=== PATIENT | female | born 1945 | race Caucasian/White ===

== ENCOUNTER 2020-07-01 13:06 | Outpatient (REF) | payer MEDICARE, SELFPAY ==
[2020-07-01 14:30] LABS: MANUAL DIFF FLAG NO
[2020-07-01 14:39] LABS: Basophils Absolute Auto 0.1 X10*3/uL (0.0-0.2); Basophils Percent Auto 0.9 % (0-2); Eosinophils Absolute Auto 0.2 X10*3/uL (0.0-0.4); Eosinophils Percent Auto 2.8 % (0-4); Hematocrit 43.5 % (37-47); Imm Gran Abs Auto 0.01 X10*3/uL (0.00-0.03); Imm Gran Pct Auto 0.2 % (0.0-0.4); Lymphocytes Absolute Auto 1.6 X10*3/uL (1.2-4.9); Lymphocytes Percent Auto 24.9 % (20-40); Mean Corpuscular HGB Conc 32.2 g/dl (31.0-35.0); Mean Corpuscular Hemoglobin 30.6 pg (27.0-33.0); Mean Platelet Volume 9.4 fL (9.4-12.3); Monocytes Absolute Auto 0.5 X10*3/uL (0.1-1.2); Monocytes Percent Auto 7.7 % (2-11); Neutrophils Absolute Auto 4.1 X10*3/uL (2.0-8.3); Neutrophils Percent Auto 63.5 % (45-73); Platelet Count 349 X10*3/uL (160-400); Red Blood Count 4.58 X10*6/uL (4.20-5.50); Red Cell Distribution Width 12.8 % (11.0-16.0); White Blood Count 6.5 X10*3/uL (4.8-10.8)
[2020-07-01 15:20] LABS: Alanine Aminotransferase 24 U/L (0-31); Albumin Level 4.3 g/dL (3.5-5.0); Alkaline Phosphatase 128 U/L (39-117); Anion Gap 16 (12-20); Aspartate Amino Transferase 21 U/L (5-31); Bilirubin Direct 0.2 mg/dL (0.0-0.5); Bilirubin Total 0.4 mg/dL (0.0-1.0); Blood Urea Nitrogen 10 mg/dL (9-16); C Reactive Protein 0.62 mg/dL (< or = 0.50); Calcium 10.3 mg/dL (8.4-10.2); Carbon Dioxide 26 mmol/L (22-29); Chloride 103 mmol/L (96-108); Estimated Glomerular Filt Rate > 60; Glucose Random 93 mg/dL (60-115); Potassium 4.2 mmol/L (3.3-5.1); Sodium 141 mmol/L (135-145); Total Protein 7.3 g/dL (6.5-8.0)
[2020-07-01 15:41] LABS: T4 Thyroxine 7.9 ug/dL (4.5-12.0); Thyroid Stimulating Hormone 1.94 uIU/mL (0.32-4.0)
[2020-07-01 16:22] LABS: Erythrocyte Sedimentation Rate 29 MM/HR (0-20)
[2020-07-02 13:57] LABS: Immunoglobulin A 139 mg/dL (70-320)
[2020-07-06 14:51] LABS: Gliadin Deamidated IgA Ab 20 Units; Gliadin Deamidated IgG Ab 2 Units
[2020-07-07 19:31] LABS: Transglutaminase Ab IgG 1 U/mL; Transglutaminase IgA 1 U/mL
[2020-07-08 15:41] LABS: Endomysial IgA Antibody Negative (Negative)
== END 2020-07-01 13:07 | disposition home or self-care (01) ==
LOC: HO.LAB 13:06
PROVIDERS: PCP Family Medicine; Visit Provider Internal Medicine
DX: R10.9 Unspecified abdominal pain (principal); R19.4 Change in bowel habit; R14.0 Abdominal distension (gaseous)
CPT/HCPCS: 36415; 80048; 80076; 82784; 83516; 84436; 84443; 85025; 85652; 86140; 86255; 86256

== ENCOUNTER 2020-07-19 10:37 | Day surgery (SDC) | payer MEDICARE, SELFPAY ==
--- NOTE | 2020-07-14 10:21 | P.CONAN_ITS ---
Documented by User: Shayla Robins 07/14/20 10:21 HPI - Anesthesia Eval Consult details Narrative: 74yo F for Colonoscopy [facility] Past Medical History Medical History Alopecia areata Breast cancer, right breast Depression GERD (gastroesophageal reflux disease) Hx of radiation therapy Osteopenia Surgical History Surgical History History of foot surgery History of lumpectomy of right breast Hx of colonoscopy Hx of dilation and curettage Hx of esophagogastroduodenoscopy Social History Social History Smoking Status: Former smoker Use of substances other than those prescribed or required for medical reasons: No Are you DNR?: No Advance Directives: No Advance Directives Information Provided: Yes Meds Allergies Allergy/AdvReac Type Severity Reaction Status Date / Time No Known Allergies Allergy Verified 07/19/20 11:30 [No Known Allergies*] Home Medications Medication Instructions Recorded Confirmed Last Taken Type nortriptyline 1 cap PO BEDTIME 07/13/20 07/13/20 Unknown History omeprazole 1 cap PO DAILY 07/13/20 07/13/20 Unknown History simvastatin 1 tab PO BEDTIME 07/13/20 07/13/20 Unknown History trospium 1 cap PO DAILY 07/13/20 07/13/20 Unknown History Exam Exam Date and Time: July 14, 2020 1021 Assessment and Plan Assessment Anesthesia Assessment: Chart Reviewed Documented by User: Lorna Saab 07/19/20 12:18 [facility] Past Medical History Medical History Alopecia areata Breast cancer, right breast Depression GERD (gastroesophageal reflux disease) Hx of radiation therapy Osteopenia Family History Family history of problems with anesthesia: No Surgical History Surgical History History of foot surgery History of lumpectomy of right breast Hx of colonoscopy Hx of dilation and curettage Hx of esophagogastroduodenoscopy History of Problems with Anesthesia: No Social History Social History Smoking Status: Former smoker Use of substances other than those prescribed or required for medical reasons: No Are you DNR?: No Advance Directives: No Advance Directives Information Provided: Yes Meds Allergies Allergy/AdvReac Type Severity Reaction Status Date / Time No Known Allergies Allergy Verified 07/19/20 11:30 [No Known Allergies*] Home Medications Medication Instructions Recorded Confirmed Last Taken Type nortriptyline 1 cap PO BEDTIME 07/13/20 07/13/20 Unknown History omeprazole 1 cap PO DAILY 07/13/20 07/13/20 Unknown History simvastatin 1 tab PO BEDTIME 07/13/20 07/13/20 Unknown History trospium 1 cap PO DAILY 07/13/20 07/13/20 Unknown History Exam Height,Weight and Vital Signs: Vital Signs Temp Pulse Resp BP Pulse Ox 07/19/20 11:30 97.6 F 90 18 151/82 H 97 Airway Mallampati Class: II TM Dist: >3cm Neck ROM: Full Partial: Upper and Lower Heart: RRR Lungs: CTAB Assessment and Plan Assessment Anesthesia Assessment: Anesthesia Plan Discussed and Chart Reviewed Final Anesthetic Review NPO: Yes ASA Class: II Final Preanesthetic Review: No Changes in Pt Med Stat, Meds/Allgs Chart Reviewed, Consent Obtained/Reviewed and Anes Risks/Benef Reviewed Patient Risk: Low Procedure Risk: Low Assessment/Block/Sedation in SS: Assess/Block/Sedation- Anesthetic Plan Anesthetic Plan: MAC: Disposition: Standard PACU
[2020-07-19 11:30] VITALS: BP 151/82; PULSE 90; RESP 18; TEMP 36.4; O2SAT 97; BMI 29.1
[2020-07-19] MEDS: Lactated Ringers 1,000 ML 100 ML IVCONT (12:46)
[2020-07-19 13:58] VITALS: BP 139/88; PULSE 94; RESP 16; TEMP 36.3; O2SAT 96
[2020-07-19 14:04] VITALS: PULSE 93; RESP 18; O2SAT 96
--- NOTE | 2020-07-19 14:04 | P.BOP_ITS ---
Brief Operative Note Date of Service: 07/19/20 Pre-op diagnosis: Change in bowels, diarrhea Post-op diagnosis: other (Diverticulosis, R/O microscopic colitis) Procedure: Colonoscopy to the cecum and TI with biopsies Surgeon: Jaspreet Garrido Anesthesia: MAC Was an Director Patient Financial Services used for this Procedure?: No Estimated blood loss (mL): 4.0 Pathology: other (A. Ascending colon B. Descending colon) Condition: stable Disposition: PACU
[2020-07-19 14:13] VITALS: BP 153/87; PULSE 89; RESP 18; O2SAT 97
[2020-07-19 14:20] VITALS: PULSE 86; RESP 18; O2SAT 97
--- NOTE | 2020-07-19 15:33 | OP_ITS ---
SURGEON: Jaspreet Garrido MD INDICATIONS: The patient presents for evaluation of change in bowel habits and diarrhea. Full consent has been obtained from her for this, including risks of bleeding and perforation. PREOPERATIVE DIAGNOSIS: POSTOPERATIVE DIAGNOSIS: PROCEDURE PERFORMED: Colonoscopy to cecum and terminal ileum with biopsies. ESTIMATED BLOOD LOSS: COMPLICATIONS: ANESTHESIA: Monitored anesthesia care. ASSISTANTS: SPECIMENS: PREOPERATIVE DIAGNOSES: Change in bowel habits and diarrhea. POSTOPERATIVE DIAGNOSES: Change in bowel habits and diarrhea, rule out microscopic colitis, diverticulosis, and internal hemorrhoids. DESCRIPTION OF PROCEDURE: The patient was placed in the left lateral decubitus position. The digital rectal exam revealed no abnormalities. The Olympus video pediatric colonoscope was entered into the rectum and advanced easily to the cecum. Once in the cecum, I did identify normal-appearing cecal pouch with appendiceal orifice and a normal-appearing ileocecal valve. The terminal ileum was cannulated for at least 10 cm and appeared normal as well. Biopsies were obtained. The scope was withdrawn back in the colon. The entire cecum and ileocecal valve appeared normal. The scope was slowly withdrawn assessing all mucosal surfaces carefully. Preparation was excellent. I did not visualize any sign of definitive colitis, polyps, nor angiodysplasia. There was some slight erythema in the sigmoid colon, but without bharti colitis. Biopsies were obtained in the ascending colon and descending colon. There were no polyps nor angiodysplasia. There was a moderate amount of sigmoid diverticulosis. In the rectum, scope was retroflexed visualizing internal hemorrhoids, but no other pathology. The rectal mucosa appeared normal. The scope was straightened out and withdrawn from the patient. She tolerated the procedure well and was returned to the recovery area in stable condition. IMPRESSION: 1. Rule out microscopic colitis. 2. Diverticulosis. 3. Internal hemorrhoids. PLAN: The results of the biopsies will be checked. She does advise me that she was recently treated for diverticulitis with outpatient oral antibiotics and this actually did help some of her symptoms improved. I will advise her to continue a careful diet and use Imodium as needed. Recent laboratories including CBC, thyroid studies, and celiac disease laboratories were nonrevealing. She also turned in reported negative stool specimens. I did advise her to see me in several months for a followup visit, but to call sooner as needed. Given her age and the otherwise negative exam, I do not think she will need any further screening colonoscopies. MD LISA Abreu/GREGORIO / [id number]
== END 2020-07-19 14:45 | disposition home or self-care (01) ==
PROVIDERS: PCP Family Medicine; Visit Provider Internal Medicine
PROC: 0DJD8ZZ Inspection of Lower Intestinal Tract, Via Natural or Artificial Opening Endoscopic (ICD-10-PCS; CPT 45378; principal; 2020-07-19 11:50)
DX: R19.4 Change in bowel habit (principal); R19.5 Other fecal abnormalities; R19.7 Diarrhea, unspecified; Z86.010 Personal history of colon polyps; K57.30 Diverticulosis of large intestine without perforation or abscess without bleeding; K64.8 Other hemorrhoids; K21.9 Gastro-esophageal reflux disease without esophagitis; M85.80 Other specified disorders of bone density and structure, unspecified site; Z79.899 Other long term (current) drug therapy; Z85.3 Personal history of malignant neoplasm of breast; Z92.3 Personal history of irradiation; Z87.891 Personal history of nicotine dependence
CPT/HCPCS: 45380; 88305

== ENCOUNTER 2022-07-26 11:50 | Outpatient (REF) | payer MEDICARE, SELFPAY ==
[2022-07-26 12:07] LABS: MANUAL DIFF FLAG NO
[2022-07-26 12:49] LABS: Basophils Percent Auto 0.8 % (0-2); Eosinophils Absolute Auto 0.2 X10*3/uL (0.0-0.4); Eosinophils Percent Auto 2.9 % (0-4); Hematocrit 44.2 % (37.0-47.0); Hemoglobin 14.3 g/dl (12.0-16.0); Imm Gran Abs Auto 0.01 X10*3/uL (0.00-0.03); Imm Gran Pct Auto 0.2 % (0.0-0.4); Mean Corpuscular HGB Conc 32.4 g/dl (31.0-35.0); Mean Corpuscular Volume 95.9 fL (80.0-98.0); Mean Platelet Volume 9.4 fL (9.4-12.3); Monocytes Absolute Auto 0.6 X10*3/uL (0.1-1.2); Monocytes Percent Auto 11.4 % (2-11); Neutrophils Absolute Auto 3.3 x10*3/uL (2.0-8.3); Neutrophils Percent Auto 64.7 % (45-73); Platelet Count 267 X10*3/uL (160-400); Red Blood Count 4.61 X10*6/uL (4.20-5.50); Red Cell Distribution Width 13.1 % (11.0-16.0); White Blood Count 5.1 X10*3/uL (4.8-10.8)
[2022-07-26 13:42] LABS: Alanine Aminotransferase 22 U/L (0-31); Albumin Level 4.2 g/dL (3.5-5.0); Alkaline Phosphatase 107 U/L (39-117); Amylase 49 U/L (28-100); Anion Gap 13 (12-20); Aspartate Amino Transferase 23 U/L (5-31); Bilirubin Direct 0.2 mg/dL (0.0-0.5); Bilirubin Total 0.7 mg/dL (0.0-1.0); Blood Urea Nitrogen 10 mg/dL (9-16); C Reactive Protein 0.28 mg/dL (< or = 0.50); Calcium 9.6 mg/dL (8.4-10.2); Carbon Dioxide 25 mmol/L (22-29); Chloride 103 mmol/L (96-108); Erythrocyte Sedimentation Rate 10 MM/HR (0-20); Estimated Glomerular Filt Rate > 60; Glucose Random 85 mg/dL (60-115); Lipase 35 U/L (8-78); Sodium 137 mmol/L (135-145)
[2022-07-26 14:05] LABS: Appearance Urine Clear; Color Urine Yellow; Glucose Urine UA Negative (Negative); Leukocyte Esterase Urine Moderate (2+) (Negative); Nitrite Urine Negative (Negative); PH 5.5 (5.0-9.0); Specific Gravity - Urine <= 1.005 (1.005-1.025); UMIC TRIGGER UACC YES; Urine Blood Negative (Negative); Urine Ketones Negative (Negative); Urine Protein Negative (Neg-Trace)
[2022-07-26 14:08] LABS: Bacteria Urine None Seen (None Seen); Hyaline Casts Urine 0-2 /LPF (0-2); RBC Urine 0-2 /HPF (0-2); Squamous Epithelial Cell Urine 0-2 /HPF (0-2); UACC Culture Trigger YES
== END 2022-07-26 11:51 | disposition home or self-care (01) ==
LOC: HO.LAB 11:50
PROVIDERS: Visit Provider Internal Medicine
DX: R10.84 Generalized abdominal pain (principal); R19.7 Diarrhea, unspecified
CPT/HCPCS: 36415; 80048; 80076; 81001; 82150; 83690; 85025; 85652; 86140; 87086; 87088; 87186

== ENCOUNTER 2022-07-27 12:28 | Outpatient (REF) | payer MEDICARE, SELFPAY ==
[2022-07-27 13:22] LABS: Leukocytes Stool Qualitative NEGATIVE (NEGATIVE)
[2022-07-27 14:19] LABS: CDiff Gene PCR POSITIVE (Negative)
[2022-07-27 14:51] LABS: CDIFF Internal ctrl Dots and bkg OK (V); CDiff Toxin Negative (Negative)
[2022-07-27 15:20] LABS: Adenovirus F 40/41 Not Detected (Not Detect.); Astrovirus Not Detected (Not Detect.); Campylobacter Not Detected (Not Detect.); Cryptosporidium Not Detected (Not Detect.); Cyclospora cayetanensis Not Detected (Not Detect.); E. coli EAEC Not Detected (Not Detect.); E. coli EPEC Not Detected (Not Detect.); E. coli ETEC Not Detected (Not Detect.); E. coli STEC Not Detected (Not Detect.); Entamoeba histolytica Not Detected (Not Detect.); Giardia lamblia Not Detected (Not Detect.); Norovirus GI/GII Not Detected (Not Detect.); Plesiomonas shigelloides Not Detected (Not Detect.); Rotavirus A Not Detected (Not Detect.); Salmonella Not Detected (Not Detect.); Sapovirus Not Detected (Not Detect.); Shigella sp./EIEC Not Detected (Not Detect.); Vibrio Not Detected (Not Detect.); Vibrio Cholerae Not Detected (Not Detect.); Yersinia enterocolitica Not Detected (Not Detect.)
== END 2022-07-27 12:29 | disposition home or self-care (01) ==
LOC: HO.LNP 12:28
PROVIDERS: Visit Provider Internal Medicine
DX: R10.84 Generalized abdominal pain (principal); R19.7 Diarrhea, unspecified
CPT/HCPCS: 87324; 87493; 87507; 89055